=== PATIENT | male | born 1990 | race Caucasian/White ===

== ENCOUNTER 2025-05-13 05:35 | Emergency (ER) | payer OTHER ==
[~2025-05-13] VITALS: Ht 172.7 cm; Wt 71.0 kg
[2025-05-13 05:41] VITALS: O2SAT 98
[2025-05-13] MEDS ORDERED: ACETAMINOPHEN WITH CODEINE 300/30MG TABLET PO ONE (06:15)
[2025-05-13] MEDS ORDERED: IBUP-2028 PO (07:55)
[2025-05-13] MEDS: ACETAMINOPHEN WITH CODEINE 300/30MG TABLET PO NR (08:30)
[2025-05-13 09:09] VITALS: BP 132/88; PULSE 90; RESP 16; TEMP 36.8; O2SAT 100
== END 2025-05-13 09:11 | disposition home or self-care (01) ==
LOC: ER 05:35
DX: S20.229A Contusion of unspecified back wall of thorax, initial encounter (principal); Z79.1 Long term (current) use of non-steroidal anti-inflammatories (NSAID); Z79.899 Other long term (current) drug therapy; W14.XXXA Fall from tree, initial encounter; Y93.89 Activity, other specified; Y92.89 Other specified places as the place of occurrence of the external cause; Y99.8 Other external cause status
CPT/HCPCS: 72100; 99283